=== PATIENT | male | born 1985 | race Caucasian/White ===

== ENCOUNTER 2022-08-27 17:15 | Emergency (ER) | payer OTHER, SELFPAY ==
[2022-08-27 17:47] VITALS: BP 141/87; PULSE 103; RESP 30; TEMP 38.5; O2SAT 97; BMI 32.5
--- NOTE | 2022-08-27 18:20 | CRLHL7_ITS ---
For Patients: As a result of the Cures Act, medical imaging exams and procedure reports are released immediately into your electronic medical record. You may view this report before your referring provider. If you have questions, please contact your health care provider. INDICATION: Fever, short of breath. TECHNIQUE: Chest 1 views. COMPARISON: None. FINDINGS: Lungs: Clear lungs. No consolidation. Linear left basilar opacity is likely scarring. Pleura: No pleural effusion or pneumothorax. Heart and Mediastinum: The cardiomediastinal silhouette is normal. The vessels are unremarkable. Bones: Unremarkable. IMPRESSION: No acute cardiopulmonary disease. Dictated by Lane Hargrove MD @ 08/27/2022 7:49:16 PM (Electronically Signed)
--- NOTE | 2022-08-27 18:22 | ED.GENADULT ---
HPI - General Adult General Chief complaint: Fever Stated complaint: Nauseous, body aches, chills Time Seen by Provider: 08/27/22 17:42 History of Present Illness HPI narrative: This patient arrives with fever, generalized malaise, and some shortness of breath. He is a 36-year-old male who is otherwise in good health. He does smoke every day. He states symptoms began at about midnight last evening. He has had a couple episodes of vomiting but no diarrhea. He has had just an occasional cough. Related Data Previous Rx's Medication Instructions Recorded amoxicillin 875 mg-potassium 1 tab PO BID 10 days #20 tabs 08/27/22 clavulanate 125 mg tablet ketorolac 10 mg tablet 10 mg PO Q8H 5 days #15 tabs 08/27/22 Allergies Allergy/AdvReac Type Severity Reaction Status Date / Time No Known Drug Allergies Allergy Verified 08/27/22 17:54 Review of Systems Status of ROS: Reports: 10 or more systems reviewed and unremarkable except as noted in History and below Narrative: Constitutional: Fever and generalized malaise. Eyes: No discharge. No vision changes. HENT: No congestion, no sore throat, no ear pain. Cardiovascular: No chest pain, no palpitations. Respiratory: Occasional cough with report of shortness of breath. Gastrointestinal: No abdominal pain, no diarrhea. He has had 2 episodes of vomiting. Genitourinary: No dysuria, no hematuria. Musculoskeletal: Normal range of motion. Skin: No rashes, no pruritis. Neurological: No dizziness, weakness, sensory change, speech change. Endo/Heme/Allergies: No bruising or bleeding. No polydipsia. Pysch: no suicidality, no anxiety, no insomnia. All other systems reviewed and are negative. PFSH PFS Social History Smoking Status: Current every day smoker What tobacco products do you use: cigarettes Smoking packs per day: 1 Smoking cigarettes per day: 20.0 Years smoked: 15 Smoking pack-years: 15.00 Do you use any of these nicotine containing products: None Second hand tobacco smoke exposure: No How often do you have a drink containing alcohol: 2-4 times a month How many standard drinks containing alcohol do you have on a typical day: 5 or 6 How often do you have six or more drinks on one occasion: Weekly AUDIT-C Alcohol total score: 7 Non-prescribed substance use: marijuana (any form) service: No Exam Narrative: Exam Narrative: Constitutional: Well-developed, well-nourished, no acute distress. HEENT: Normocephalic, atraumatic. Neck: Normal range of motion. Nontender. Supple. Heart: Regular. No murmurs. Borderline tachycardia. Intact distal pulses. Lungs: Clear to auscultation. No chest discomfort. No wheezes, rhonchi, or rales. Abdomen: Normal bowel sounds. Nontender. No rebound tenderness. Genitalia: Deferred. Back: No midline tenderness. Normal range of motion. Extremities: Normal range of motion. No injury. Skin: Intact. No rash. Warm. No erythema or pallor. Neurologic: No altered sensation. No weakness. Alert and oriented. Psychiatric: No suicidality. No anxiety or depression. No insomnia. Nursing notes and vitals signs are reviewed. Const: Vital Signs, click to edit/add: Vital Signs - 24 hr 08/27/22 17:47 Temperature 101.3 F H Pulse Rate [Pulse Oximeter] 103 H Respiratory Rate 30 H Blood Pressure [Ri ght Upper Arm] 141/87 H Pulse Oximetry 97 Oxygen Delivery Me thod Room Air Course Vital Signs Vital signs: Initial Vital Signs Temperature 101.3 F H 08/27/22 17:47 Temperature Source Temporal Artery Scan 08/27/22 17:47 Pulse Rate 103 H 08/27/22 17:47 Pulse Rhythm 08/27/22 17:47 Respiratory Rate 30 H 08/27/22 17:47 Blood Pressure 141/87 H 08/27/22 17:47 Blood Pressure Mean 105 08/27/22 17:47 Blood Pressure Position Supine 08/27/22 17:47 Pulse Oximetry 97 08/27/22 17:47 Oxygen Delivery Method 08/27/22 17:47 Vital Signs Temperature 101.3 F H 08/27/22 17:47 Pulse Rate 103 H 08/27/22 17:47 Respiratory Rate 30 H 08/27/22 17:47 Blood Pressure 141/87 H 08/27/22 17:47 Pulse Oximetry 97 08/27/22 17:47 Oxygen Delivery Method 08/27/22 17:47 Temperature 101.3 F H 08/27/22 17:47 Pulse Rate 103 H 08/27/22 17:47 Respiratory Rate 30 H 08/27/22 17:47 Blood Pressure 141/87 H 08/27/22 17:47 Pulse Oximetry 97 08/27/22 17:47 Oxygen Delivery Method 08/27/22 17:47 Medical Decision Making MDM Narrative Medical decision making narrative: This patient comes in with fever and report of some shortness of breath. He has generalized malaise. An IV was established where he received L of normal saline. Lab results returned with a mildly elevated white blood cell count. Chest x-ray shows no sign of acute pulmonary disease. The patient is a every day smoker. Lab results are negative for COVID and influenza. I did decide to prescribed Toradol and Augmentin. There is a fair chance that this is a viral infection but his risk with smoking and the presence of a fever and negative COVID and influenza tests bring me to this plan. I describe signs and symptoms that would indicate a need for return and re-evaluation. Lab Data Labs: Lab Results 08/27/22 08/27/22 08/27/22 Range/Units 17:53 18:40 18:40 WBC 14.03 H (4.50-11.00) K/uL RBC 4.72 (4.30-5.90) m/uL Hgb 14.5 (13.5-17.5) gm/dL Hct 42.3 (37.0-53.0) % MCV 90 (80-100) fL MCH 31 (26-34) pg MCHC 34 (32-36) gm/dL RDW Coeff of Joseph 12.7 (11.5-15.5) % Plt Count 206 (140-440) K/uL Neut % (Auto) 91.2 H (42.0-72.0) % Lymph % (Auto) 3.2 L (20-44) % Childress % (Auto) 5.0 (0.0-11.0) % Eos % (Auto) 0.0 (0.0-7.0) % Baso % (Auto) 0.2 (0.0-3.0) % Neut # (Auto) 12.80 H (1.7-7.0) K/uL Lymph # (Auto) 0.40 L (0.90-2.90) K/uL Childress # (Auto) 0.70 (0.00-0.90) K/UL Eos # (Auto) 0.00 (0.00-0.50) K/uL Baso # (Auto) 0.00 (0.00-0.30) K/uL Abs Immat Gran (auto) 0.05 (0.00-0.30) K/uL Sodium 131 L (135-149) mmol/L Potassium 3.8 (3.6-5.1) mmol/L Chloride 98 (96-114) mmol/L Carbon Dioxide 23 (20-32) mmol/L BUN 15 (5-24) mg/dL Creatinine 1.0 (0.5-1.5) mg/dL Estimated Creat Clear 112.09 Estimated GFR 100 ml/min Glucose 111 (60-115) mg/dL Calcium 9.2 (8.4-10.6) mg/dL SARS-CoV-2 (PCR) Negative SARS-CoV-2 (Negative) Influenza Type A (PCR) Negative PCR FLU A (Negative) Influenza Type B (PCR) Negative PCR FLU B (Negative) Imaging Data Chest x-ray: Radiologist's impression: No acute cardiopulmonary disease. Discharge Plan Discharge Clinical Impression: Acute lower respiratory infection Patient Disposition: Home, Self-Care Condition: Stable Additional Instructions: Take medication as prescribed. Follow up with MD or return if worsening symptoms occur. Prescriptions: New ketorolac 10 mg tablet 10 mg PO Q8H 5 Days Qty: 15 0RF amoxicillin-pot clavulanate 875-125 mg tablet 1 tab PO BID 10 Days Qty: 20 0RF Follow Up/Referrals: Harley Wheeler MD [Staff Physician] - Stand Alone Forms: [employer] Info Instructions
--- OUTSIDE RECORDS SUMMARY | 2022-08-27 18:37 | XMS_ITS | Encounter Summary ---
:1985 Author Organization [facility] Address [address] [place] [id number] Care Team Providers Name Role Phone Harley Wheeler MD Primary Care Provider Duy Torres MD Unavailable Reason for Referral Mental Health Outpatient (Routine) - Closed Specialty Diagnoses / Procedures Referred By Contact Refer red To Contact Diagnoses Depression, unspecified depression type Duy Torres MD [address] [place] [address] [id number] Referral ID Status Reason Start Date Expiration Date Visits Requ ested Visits Authorized [id number] Closed 01/20/2020 01/19/2021 1 1 S Reason for Visit Reason Comments Derm Problem Tang is here today for eczem a throughout the body. Consultation (Routine) - Closed Specialty Diagnoses / Procedures Referred By Contact Refer red To Contact Diagnoses Chronic pruritic rash in adult Generic External Data Department Referral ID Status Reason Start Date Expiration Date Visits Requ ested Visits Authorized [id number] Closed 11/03/2019 11/02/2020 1 1 Encounter Details Date Type Department Care Team Description 01/20/2020 Office Visit [facility] Dermatology Harley Wheeler MD [facility] [address] [place] [address] Multiple excoriations (Primary Dx); [address] [place] [address] Duy Torres MD [address] [place] [id number] Angular cheilitis; [address] Floor [place]et[place]; [place], [place] Depression, unspecified depression type [id number] Social History Tobacco Use Types Packs/Day Years Used Date Current Every Day Smoker Cigarettes 1 Smokeless Tobacco: Current User Alcohol Use Standard Drinks/Week Comments Not Asked 0 (1 standard drink = 0.6 oz pure alcoho l) Sex Assigned at Date Recorded Not on file documented as of this encounter Last Filed Vital Signs Vital Sign Reading Time Taken Comments Blood Pressure 137/86 01/20/2020 8:37 AM CRTTS Pulse 85 01/20/2020 8:37 AM CRTTS Temperature - - Respiratory Rate - - Oxygen Saturation - - Inhaled Oxygen Concentration - - Weight - - Height - - Body Mass Index - - documented in this encounter Patient Instructions Patient InstructionsPearsDuy dailey MD - 01/20/2020 9:00 AM CST S documented in this encounter Progress Notes Duy Torres MD - 01/20/2020 9:00 AM CST [facility] Dermatology Note Dermatology Problem List: 1. Pruritus and excoriations: in setting of major life stressors -triamcinolone 0.1% ointment, mupirocin 2% ointment 2. Angular cheilitis -nystatin ointment Encounter Date: Jan 20, 2020 CC: Chief Complaint Patient presents with ??? Derm Problem Tang is here today for eczema throughout the body. History of Present Illness: Mr. Tang Schmidt is a 34 year old male who presents for evaluation of a rash. The patient reports that in 04/2019, he began developing small dots like blackheads. He tried expressing the contents of the lesions, but they then began to spread throughout his body. He works in a shop and cuts wood frequen tly, and when he sustains small cuts on his hands, the cuts grow into an oval shape. He believes that there may be a foreign parasite or infection that attacks any open wounds on his skin. He works on a farm, and he is very concerned for a pinworm infection as there are a fair number of animals living there and this environment is not very sanitary. He reports that he has been continuing to develop small black lesions on his skin, and when he tries to pick them out of his skin with tweezers, he is able to pull a white foreign body out of the lesion. He has tried multiple treatments including Neosporin, hydrocortisone, Hibiclens, apple cider vinegar, and he was also treated with permethrin cream aswell as a couple of courses of antibiotics. He reports that the only treatment that seemed to provide any relief was the apple cider vinegar. He also notes that has been noticing changes in his stool, and he is sometims able to see what look like worms in his stool. Notably, he has also been under a fair amount of stress in his life as this has been on-going. Past Medical History: Patient Active Problem List Diagnosis ??? Multiple excoriations Past Medical History: Diagnosis Date ??? Viral meningitis No Comments Provided Past Surgical History: Procedure Laterality Date ??? OTHER SURGICAL HISTORY [id number],NO PREVIOUS SURGERY Social History: Patient reports that he has been smoking cigarettes. He has been smoking about 1.00 pack per day. Heuses smokeless tobacco. Family History: History reviewed. No pertinent family history. Medications: Current Outpatient Medications Medication Sig Dispense Refill ??? chlorhexidine (HIBICLENS) 4 % liquid Apply topically daily as needed for wound care 473 mL 5 ??? mupirocin (BACTROBAN) 2 % external ointment Apply topically 2 times daily 60 g 3 ??? nystatin (MYCOSTATIN) 477614 UNIT/GM external ointment Apply topically 2 times daily For corner of mouth 30 g 3 ??? sertraline (ZOLOFT) 100 MG tablet TK 1 T PO QD ??? triamcinolone (KENALOG) 0.1 % external ointment Apply topically 2 times daily 454 g 3 No Known Allergies Review of Systems: -Constitutional: Otherwise feeling well today, in usual state of health. -HEENT: Patient denies nonhealing oral sores. -Skin: As above in HPI. No additional skin concerns. Physical exam: Vitals: BP 137/86 (BP Location: Right arm, Patient Position: Sitting, Cuff Size: Adult Regular) Pulse 85 GEN: This is a well developed, well-nourished male in no acute distress, in a pleasant mood. SKIN: Full skin, which includes the head/face, both arms, chest, back, abdomen,both legs, genitalia and/or groin buttocks, digits and/or nails, was examined. -Chopra skin type: II -numerous superficial linear and scooped out erosion, some with scant overlying crusting scattered on the forearms, upper arms, lower legs, upper chest, upper back, and neck -erythematous fissure papule on the R oral commissure with scant crusting -No other lesions of concern on areas examined. Impression/Plan: 1. Diffuse pruritus with excoriations related to trauma from excessive scratching - discussed that many of the changes on his skin are secondary changes related to scratching. We also discussed the risks, benefits, and efficacy of treatment with topical mupirocin and triamcinolone in conjunction with Duoderm dressings. The patient is agreeable to this plan. -Start: triamcinolone 0.1% ointment, mupirocin 2% ointment -continue chlorhexidine wash -Labs: CBC w/diff, CMP -we also discussed that stress can be a major contributing factor that can trigger diffuse pruritus and emphasized the need to reduce stress in his life as best he can. -referral placed for mental health evaluation to discuss and manage the impact stress has been having on his life 2. Angular cheilitis - We discussed the natural etiology of the condition as well as the risks, benefits, and efficacy oftreatment with topical nystatin - start: nystatin 304606 unit/gm ointment Follow-up in 4-6 weeks, earlier for new or changing lesions. Staff Involved: Scribe/Staff Scribe Disclosure I, Murphy Carmen, am serving as a scribe to document services personally performed by Dr. Duy Torres MD, based on data collection and the provider's statements to me. Provider Disclosure: The documentation recorded by the scribe accurately reflects the services I personally performed andthe decisions made by me. Duy Torres MD Male Impersonator of Dermatology Department of Dermatology [facility] [employer] [facility] S documented in this encounter Nursing Notes Arin Baca CMA - 01/20/2020 9:00 AM CST Dermatology Rooming Note Tang Schmidt's goals for this visit include: Chief Complaint Patient presents with ??? Derm Problem Tang is here today for eczema throughout the body. Arin Baca CMA S documented in this encounter Plan of Treatment Scheduled Referrals Name Type Priority Associated Diagnoses Order S [facility] REFERRAL - Referral Routine Depression, unsp ecified Ordered: 01/20/2020 Adult; Assessments and depression type Testing; General Psychological Testing; [facility]: [facility] ; We will contact you to schedule the appointment or please call with any questions documented as of this encounter Results Iron and iron binding capacity (01/20/2020 9:29 AM CRTTS) athologist Signature Iron 72 35 - 180 01/20/2020 [facility] ug/dL 10:03 AM [facility] Iron Binding 344 240 - 430 01/20/2020 [facility] Cap ug/dL 10:03 AM [facility] Iron Saturation 21 15 - 46 % 01/20/2020 [facility] Index 10:03 AM [facility] Specimen Anatomical Collection Method Collection Time Receive d Time (Source) Location / / Volume Laterality Blood specimen 01/20/2020 9:29 AM 020 9:30 (specimen) CRTTS AM CRTTS Duy Torres MD LAB - BLOOD ORDERABLES Performing Organization Address City/State/ZIP Code Phon e Number [address] [address] [facility] TSH with free T4 reflex (01/20/2020 9:29 AM CRTTS) athologist Signature TSH 2.10 0.40 - 4.00 01/20/2020 [place] mU/L 10:07 AM [facility] Specimen Anatomical Collection Method Collection Time Receive d Time (Source) Location / / Volume Laterality Blood specimen 01/20/2020 9:29 AM 020 9:30 (specimen) CRTTS AM CRTTS Duy Torres MD LAB - BLOOD ORDERABLES Performing Organization Address City/State/ZIP Code Phon e Number M [facility] [address] [address] [phone] [facility] [address] [address], [place] [phone] (ABNORMAL) Comprehensive metabolic panel (01/20/2020 9:29 AM CRTTS) Analysis Performed At Patho logist Time Signature Sodium 139 133 - 144 01/20/2020 [facility] mmol/L 10:06 AM [facility] Potassium 4.1 3.4 - 5.3 01/20/2020 [facility] mmol/L 10:06 AM [facility] Chloride 107 94 - 109 01/20/2020 [facility] mmol/L 10:06 AM [facility] Carbon Dioxide 29 20 - 32 01/20/2020 [facility] mmol/L 10:06 AM [facility] Anion Gap 3 3 - 14 01/20/2020 [facility] mmol/L 10:06 AM [facility] Glucose 102 (H) 70 - 99 01/20/2020 [facility] mg/dL 10:06 AM [facility] Urea Nitrogen 8 7 - 30 01/20/2020 [facility] mg/dL 10:06 AM [facility] Creatinine 0.88 0.66 - 01/20/2020 [facility] 1.25 mg/dL 10:06 AM [facility] GFR Estimate >90 >60 01/20/2020 [facility] mL/min/{1. 10:06 AM [facility] 73_m2} [facility] Comment: Non GFR Calc Starting 11/11/2018, serum creatinine ba sed estimated GFR (eGFR) will be calculated using the Chronic Kidney Dise ase Epidemiology Collaboration (CKD-EPI) equation. GFR Estimate If >90 >60 mL/min/{1.73_m2} 01/20/2020 10 :06 AM [facility] Comment: GFR Calc Starting 11/11/2018, serum creatinine ba sed estimated GFR (eGFR) will be calculated using the Chronic Kidney Dise ase Epidemiology Collaboration (CKD-EPI) equation. Calcium 8.9 8.5 - 10.1 mg/dL 01/20/2020 10:06 AM [facility] Bilirubin Total 0.3 0.2 - 1.3 mg/dL 01/20/2020 10:07 A M [facility] Albumin 3.8 3.4 - 5.0 g/dL 01/20/2020 10:07 AM [facility] Protein Total 6.8 6.8 - 8.8 g/dL 01/20/2020 10:07 AM [facility] Alkaline Phosphatase 70 40 - 150 U/L 01/20/2020 10:07 AM [facility] ALT 45 0 - 70 U/L 01/20/2020 10:07 AM [facility] AST 34 0 - 45 U/L 01/20/2020 10:07 AM [facility] Specimen Anatomical Collection Method Collection Time Receive d Time (Source) Location / / Volume Laterality Blood specimen 01/20/2020 9:29 AM 020 9:30 (specimen) CRTTS AM [facility] Duy Torres MD LAB - BLOOD ORDERABLES Performing Organization Address City/[facility]/ZIP Code Phon e Number [address] [id number] [phone] [phone] [place] [phone] [facility] CBC with platelets differential (01/20/2020 9:29 AM [facility]) [facility] gist Method Time Signature WBC 5.3 4.0 - 01/20/2020 [facility] 11.0 9:34 AM [facility] 10e9/L [facility] RBC Count 4.63 4.4 - 5.9 01/20/2020 [facility] 10e12/L 9:34 AM [facility] Hemoglobin 14.6 13.3 - 01/20/2020 [facility] 17.7 g/dL 9:34 AM [facility] Hematocrit 44.7 40.0 - 01/20/2020 [facility] 53.0 % 9:34 AM [facility] MCV 97 78 - 100 01/20/2020 [facility] fl 9:34 AM [facility] MCH 31.5 26.5 - 01/20/2020 [facility] 33.0 pg 9:34 AM [facility] MCHC 32.7 31.5 - 01/20/2020 [facility] 36.5 g/dL 9:34 AM [facility] RDW 12.8 10.0 - 01/20/2020 [facility] 15.0 % 9:34 AM [facility] Platelet Count 261 150 - 450 01/20/2020 [facility] 10e9/L 9:34 AM [facility] Diff Method Automated 01/20/2020 [facility] Method 9:34 AM [facility] % Neutrophils 55.7 % 01/20/2020 [facility] 9:34 AM [facility] % Lymphocytes 26.2 % 01/20/2020 [facility] 9:34 AM [facility] % Monocytes 11.8 % 01/20/2020 [facility] 9:34 AM [facility] % Eosinophils 4.8 % 01/20/2020 [facility] 9:34 AM [facility] % Basophils 1.1 % 01/20/2020 [facility] 9:34 AM [facility] % Immature 0.4 % 01/20/2020 [facility] Granulocytes 9:34 AM [facility] Nucleated RBCs 0 0 /100 01/20/2020 [facility] 9:34 AM [facility] Absolute 2.9 1.6 - 8.3 01/20/2020 [facility] Neutrophil 10e9/L 9:34 AM [facility] Absolute 1.4 0.8 - 5.3 01/20/2020 [facility] Lymphocytes 10e9/L 9:34 AM [facility] Absolute 0.6 0.0 - 1.3 01/20/2020 [facility] Monocytes 10e9/L 9:34 AM [facility] Absolute 0.3 0.0 - 0.7 01/20/2020 [facility] Eosinophils 10e9/L 9:34 AM [facility] Absolute 0.1 0.0 - 0.2 01/20/2020 [facility] Basophils 10e9/L 9:34 AM CRTTS [facility] Abs Immature 0.0 0 - 0.4 01/20/2020 [facility] Granulocytes 10e9/L 9:34 AM [facility] Absolute 0.0 01/20/2020 [facility] Nucleated RBC 9:34 AM [facility] Specimen Anatomical Collection Method Collection Time Receive d Time (Source) Location / / Volume Laterality Blood specimen 01/20/2020 9:29 AM 020 9:30 (specimen) CRTTS AM CRTTS Duy Torres MD LAB - BLOOD ORDERABLES Performing Organization Address City/State/ZIP Code Phon e Number [address] [address] [facility] documented in this encounter Visit Diagnoses Diagnosis Multiple excoriations - Primary Other and unspecified superficial injury of other, multiple, and unspecified sites, without mention of infection Angular cheilitis Diseases of lips Impetigo Depression, unspecified depression type documented in this encounter Additional Health Concerns Assessment Noted Time PHQ-9 Depression Total Score: 16 01/20/2020 8:36 AM CS T documented as of this encounter Care Teams Neck Pinner Relationship Specialty Start Date End Date Harley Wheeler MD PCP - General 11/03/19 [facility] [address] [place] [address] Duy Torres MD MD Dermatology 11/03/[address] [place] [phone] documented as of this encounter
--- OUTSIDE RECORDS SUMMARY | 2022-08-27 18:37 | XMS_ITS | Encounter Summary ---
:1985 Author Organization [place] Address [address] [place] [address] Care Team Providers Name Role Phone Harley Wheeler MD Primary Care Provider Duy Torres MD Unavailable Reason for Visit Reason Onset Date Comments Appointment 02/24/2020 Encounter Details Date Type Department Care Team Description 02/24/2020 Telephone [facility] Dermatology Duy Torres MD Appointment [address] [address] [phone] Social History Tobacco Use Types Packs/Day Years Used Date Current Every Day Smoker Cigarettes 1 Smokeless Tobacco: Current User Alcohol Use Standard Drinks/Week Comments Not Asked 0 (1 standard drink = 0.6 oz pure alcoho l) Sex Assigned at Date Recorded Not on file COVID-19 Exposure Response Date Recorded In the last month, have you been in contact Unable to assess 02/24/2020 7:03 AM CDT with someone who was confirmed or suspected to have Coronavirus / COVID-19? documented as of this encounter Miscellaneous Notes Telephone Encounter - Yara Montero LPN - 02/24/2020 9:28 AM CDT Attempted to call patient for his appointment today at 9:30am. No answer, unable to leave voicemail due to mailbox being full. Yara Montero LPN documented in this encounter Plan of Treatment Not on filedocumented as of this encounter Visit Diagnoses Not on filedocumented in this encounter Additional Health Concerns Assessment Noted Time PHQ-9 Depression Total Score: 16 01/20/2020 8:36 AM CS T documented as of this encounter Care Teams Engagement Director Relationship Specialty Start Date End Date Harley Wheeler MD PCP - General 11/03/19 [facility] [address] [place] [address] Duy Torres MD MD Dermatology 11/03/[address] [place] [address] documented as of this encounter
--- OUTSIDE RECORDS SUMMARY | 2022-08-27 18:37 | XMS_ITS | Encounter Summary ---
:1985 Author Organization [place] Address [address] [place] [address] Care Team Providers Name Role Phone Harley Wheeler MD Primary Care Provider Duy Torres MD Unavailable Encounter Details Date Type Department Care Team Description 01/20/2020 Travel Social History Tobacco Use Types Packs/Day Years Used Date Current Every Day Smoker Cigarettes 1 Smokeless Tobacco: Current User Alcohol Use Standard Drinks/Week Comments Not Asked 0 (1 standard drink = 0.6 oz pure alcoho l) Sex Assigned at Date Recorded Not on file documented as of this encounter Plan of Treatment Not on filedocumented as of this encounter Visit Diagnoses Not on filedocumented in this encounter Additional Health Concerns Assessment Noted Time PHQ-9 Depression Total Score: 16 01/20/2020 8:36 AM CS T documented as of this encounter Care Teams Cellular Tower Climber Relationship Specialty Start Date End Date Harley Wheeler MD PCP - General 11/03/19 [facility] [address] [place] [address] Duy Torres MD MD Dermatology 11/03/[address] [place] [address] [id number] documented as of this encounter
--- OUTSIDE RECORDS SUMMARY | 2022-08-27 18:37 | XMS_ITS | Encounter Summary ---
:1985 Author Organization [place] Address [address] [place] [address] Care Team Providers Name Role Phone Harley Wheeler MD Primary Care Provider Duy Torres MD Unavailable Reason for Visit Reason Onset Date Comments Appointment 01/21/2020 Encounter Details Date Type Department Care Team Description 01/21/2020 Telephone [facility] Dermatology Duy Torres MD Appointment [address] [place] [address] [phone] Social History Tobacco Use Types Packs/Day Years [...] this encounter Miscellaneous Notes Telephone Encounter - Nghia Small - 01/21/2020 2:23 PM CST We did not reach Tang Shcmidt, we left a message with our contact number [phone]. If we do not hear from them within the next 3 business days we will mail a letter offering our scheduling services. If they do call to schedule, in the future, we will inform you of the outcome. Thank you for your referral, [facility] RDOUS WASTE TECHNICIAN documented in this encounter Plan of Treatment Not on filedocumented as of this encounter Visit Diagnoses Not on filedocumented in this encounter Additional Health Concerns Assessment Noted Time PHQ-9 Depression Total Score: 16 01/20/2020 8:36 AM CS T documented as of this encounter Care Teams Circuit [address] Magistrate Relationship Specialty Start Date End Date Harley Wheeler MD PCP - General 11/03/19 [facility] [address] [place] [address] Duy Torres MD MD Dermatology 11/03/19 [address] [place] [address] documented as of this encounter
--- OUTSIDE RECORDS SUMMARY | 2022-08-27 18:37 | XMS_ITS | Encounter Summary ---
:1985 Author Organization [place] Address [address] [place] [address] Care Team Providers Name Role Phone Harley Wheeler MD Primary Care Provider Duy Torres MD Unavailable Encounter Details Date Type Department Care Team Description 01/20/2020 Orders Only [facility] Multiple excoriations [address] [place] [address] [phone] Social History Tobacco Use Types Packs/Day Years Used Date Current Every Day Smoker Cigarettes 1 Smokeless Tobacco: Current User Alcohol Use Standard Drinks/Week Comments Not Asked 0 (1 standard drink = 0.6 oz pure alcoho l) Sex Assigned at Date Recorded Not on file documented as of this encounter Plan of Treatment Not on filedocumented as of this encounter Procedures Procedure Name Priority Date/Time Associated Diagnosis Comme nts CBC WITH PLATELETS & Routine 01/20/2020 9:29 Multiple Resu lts for this DIFFERENTIAL AM SENIOR PROJECT ACCOUNTANT excoriations procedure are i n the results section. TSH WITH FREE T4 Routine 01/20/2020 9:29 Multiple Results for this REFLEX AM SENIOR PROJECT ACCOUNTANT excoriations procedure are i n the results section. IRON AND IRON BINDING Routine 01/20/2020 9:29 Multiple Res ults for this CAPACITY AM SENIOR PROJECT ACCOUNTANT excoriations procedure are i n the results section. COMPREHENSIVE Routine 01/20/2020 9:29 Multiple Results for this METABOLIC PANEL AM SENIOR PROJECT ACCOUNTANT excoriations procedure ar e in the results section. documented in this encounter Results Iron and iron binding capacity (01/20/2020 9:29 AM SENIOR PROJECT ACCOUNTANT) athologist Signature Iron 72 35 - 180 01/20/2020 [facility] ug/dL 10:03 AM [facility] Iron Binding 344 240 - 430 01/20/2020 [facility] Cap ug/dL 10:03 AM [facility] Iron Saturation 21 15 - 46 % 01/20/2020 [facility] Index 10:03 AM [facility] Specimen Anatomical Collection Method Collection Time Receive d Time (Source) Location / / Volume Laterality Blood specimen 01/20/2020 9:29 AM 9:30 (specimen) SENIOR PROJECT ACCOUNTANT AM SENIOR PROJECT ACCOUNTANT Duy Torres MD LAB - BLOOD ORDERABLES Performing Organization Address City/State/[place] [address] [facility] TSH with free T4 reflex (01/20/2020 9:29 AM SENIOR PROJECT ACCOUNTANT) athologist Signature TSH 2.10 0.40 - 4.00 01/20/2020 [place] mU/L 10:07 AM [facility] Specimen Anatomical Collection Method Collection Time Receive d Time (Source) Location / / Volume Laterality Blood specimen 01/20/2020 9:29 AM 9:30 (specimen) SENIOR PROJECT ACCOUNTANT AM SENIOR PROJECT ACCOUNTANT Duy Torres MD LAB - BLOOD ORDERABLES Performing Organization Address City/State/ZIP Code Phon e Number [facility] [address] [address] [phone] [place] [id number] [address] [address], [facility] [phone] CBC with platelets differential (01/20/2020 9:29 AM SENIOR PROJECT ACCOUNTANT) [facility] gist Method Time Signature WBC 5.3 4.0 - 01/20/2020 [facility] 11.0 9:34 AM [facility] 10e9/L [facility] RBC Count 4.63 4.4 - 5.9 01/20/2020 [facility] 10e12/L 9:34 AM [facility] Hemoglobin 14.6 13.3 - 01/20/2020 [facility] 17.7 g/dL 9:34 AM [facility] Hematocrit 44.7 40.0 - 01/20/2020 [facility] 53.0 % 9:34 AM [facility] MCV 97 78 - 100 01/20/2020 [facility] fl 9:34 AM [facility] MCH 31.5 26.5 - 01/20/2020 [facility] 33.0 pg 9:34 AM [facility] MCHC 32.7 31.5 - 01/20/2020 [facility] 36.5 g/dL 9:34 AM [facility] RDW 12.8 10.0 - 01/20/2020 [facility] 15.0 % 9:34 AM [facility] Platelet Count 261 150 - 450 01/20/2020 [facility] 10e9/L 9:34 AM [facility] Diff Method Automated 01/20/2020 [facility] Method 9:34 AM [facility] % Neutrophils 55.7 % 01/20/2020 [facility] 9:34 AM [facility] % Lymphocytes 26.2 % 01/20/2020 [facility] 9:34 AM [facility] % Monocytes 11.8 % 01/20/2020 [facility] 9:34 AM [facility] % Eosinophils 4.8 % 01/20/2020 [facility] 9:34 AM [facility] % Basophils 1.1 % 01/20/2020 [facility] 9:34 AM [facility] % Immature 0.4 % 01/20/2020 [facility] Granulocytes 9:34 AM [facility] Nucleated RBCs 0 0 /100 01/20/2020 [facility] 9:34 AM [facility] Absolute 2.9 1.6 - 8.3 01/20/2020 [facility] Neutrophil 10e9/L 9:34 AM [facility] Absolute 1.4 0.8 - 5.3 01/20/2020 [facility] Lymphocytes 10e9/L 9:34 AM [facility] Absolute 0.6 0.0 - 1.3 01/20/2020 [facility] Monocytes 10e9/L 9:34 AM [facility] Absolute 0.3 0.0 - 0.7 01/20/2020 [facility] Eosinophils 10e9/L 9:34 AM [facility] Absolute 0.1 0.0 - 0.2 01/20/2020 [facility] Basophils 10e9/L 9:34 AM [facility] Abs Immature 0.0 0 - 0.4 01/20/2020 [facility] Granulocytes 10e9/L 9:34 AM [facility] Absolute 0.0 01/20/2020 [facility] Nucleated RBC 9:34 AM [facility] Specimen Anatomical Collection Method Collection Time Receive d Time (Source) Location / / Volume Laterality Blood specimen 01/20/2020 9:29 AM 020 9:30 (specimen) SENIOR PROJECT ACCOUNTANT AM [facility] Duy Torres MD LAB - BLOOD ORDERABLES Performing Organization Address City/State/ZIP Code Phon e Number [facility] [address] [place] [address] [facility] (ABNORMAL) Comprehensive metabolic panel (01/20/2020 9:29 AM SENIOR PROJECT ACCOUNTANT) Analysis Performed At Patho logist Time Signature Sodium 139 133 - 144 01/20/2020 [facility] mmol/L 10:06 AM [facility] Potassium 4.1 3.4 - 5.3 01/20/2020 [facility] mmol/L 10:06 AM [facility] Chloride 107 94 - 109 01/20/2020 [facility] mmol/L 10:06 AM [facility] Carbon Dioxide 29 20 - 32 01/20/2020 [facility] mmol/L 10:06 AM [facility] Anion Gap 3 3 - 14 01/20/2020 [facility] mmol/L 10:06 AM [facility] Glucose 102 (H) 70 - 99 01/20/2020 [facility] mg/dL 10:06 AM [facility] Urea Nitrogen 8 7 - 30 01/20/2020 [facility] mg/dL 10:06 AM [facility] Creatinine 0.88 0.66 - 01/20/2020 [facility] 1.25 mg/dL 10:06 AM [facility] GFR Estimate >90 >60 01/20/2020 [facility] mL/min/{1. 10:06 AM [facility] 73_m2} [facility] Comment: Non GFR Calc Starting 11/11/2018, serum creatinine ba sed estimated GFR (eGFR) will be calculated using the Chronic Kidney Dise [facility] Epidemiology Collaboration (CKD-EPI) equation. GFR Estimate If >90 >60 mL/min/{1.73_m2} 01/20/2020 10 :06 AM [facility] Comment: GFR Calc Starting 11/11/2018, serum creatinine ba sed estimated GFR (eGFR) will be calculated using the Chronic Kidney Dise [facility] Epidemiology Collaboration (CKD-EPI) equation. Calcium 8.9 8.5 - 10.1 mg/dL 01/20/2020 10:06 AM [facility] Bilirubin Total 0.3 0.2 - 1.3 mg/dL 01/20/2020 10:[address] [facility] Albumin 3.8 3.4 - 5.0 g/dL 01/20/2020 10:07 AM [facility] Protein Total 6.8 6.8 - 8.8 g/dL 01/20/2020 10:[address] [facility] Alkaline Phosphatase 70 40 - 150 U/L 01/20/2020 10:[address] [facility] ALT 45 0 - 70 U/L 01/20/2020 10:[address] [facility] AST 34 0 - 45 U/L 01/20/2020 10:[address] [facility] Specimen Anatomical Collection Method Collection Time Receive d Time (Source) Location / / Volume Laterality Blood specimen 01/20/2020 9:29 AM 020 9:30 (specimen) SENIOR PROJECT ACCOUNTANT AM SENIOR PROJECT ACCOUNTANT Duy Torres MD LAB - BLOOD ORDERABLES Performing Organization Address City/State/ZIP Code Phon e Number [facility] [address] [address], [facility] [phone] [facility] [address] [address], [facility] documented in this encounter Visit Diagnoses Diagnosis Multiple excoriations Other and unspecified superficial injury of other, multiple, and unspecified sites, without mention of infection documented in this encounter Additional Health Concerns Assessment Noted Time PHQ-9 Depression Total Score: 16 01/20/2020 8:36 AM CS T documented as of this encounter Care Teams Eyelet Row Marker Relationship Specialty Start Date End Date Harley Wheeler MD PCP - General 11/03/19 [facility] [address] [place] [address] Duy Torres MD MD Dermatology 11/03/19 [address] [place] [address] documented as of this encounter
--- OUTSIDE RECORDS SUMMARY | 2022-08-27 18:37 | XMS_ITS | Encounter Summary ---
:1985 Author Organization [place] Address [address] [place] [address] Care Team Providers Name Role Phone Harley Wheeler MD Primary Care Provider Duy Torres MD Unavailable Reason for Visit Reason Onset Date Comments Appointment 02/15/2020 Encounter Details Date Type Department Care Team Description 02/15/2020 Telephone [facility] Dermatology Duy Torres MD Appointment [id number] [place] [address] [phone] Social History Tobacco Use Types Packs/Day Years Used Date Current Every Day Smoker Cigarettes 1 Smokeless Tobacco: Current User Alcohol Use Standard Drinks/Week Comments Not Asked 0 (1 standard drink = 0.6 oz pure alcoho l) Sex Assigned at Date Recorded Not on file documented as of this encounter Miscellaneous Notes Telephone Encounter - Arin Baca CMA - 02/22/2020 2:21 PM CDT Voicemail left with patient asking to return a call to the clinic. Patient needs to sign up for MyChart and send photos before his appointment. Telephone Encounter - Arin Baca CMA - 02/15/2020 4:20 PM CDT Left a voicemail for Tang asking to call back to discuss his Dermatology appointment. Due to the COVID-19 virus we are minimizing any non-urgent or non life threatening appointments. Current appointment changed into a telephone visit. Clinic number provided to call back to discuss if needed. documented in this encounter Plan of Treatment Not on filedocumented as of this encounter Visit Diagnoses Not on filedocumented in this encounter Additional Health Concerns Assessment Noted Time PHQ-9 Depression Total Score: 16 01/20/2020 8:36 AM CS T documented as of this encounter Care Teams Military Personnel Specialist Relationship Specialty Start Date End Date Harley Wheeler MD PCP - General 11/03/19 [facility] [address] [place] [address] Duy Torres MD MD Dermatology 11/03/[address] [place] [address] documented as of this encounter
--- OUTSIDE RECORDS SUMMARY | 2022-08-27 18:37 | XMS_ITS | Clinical Summary ---
:1985 Author Organization [place] Address [address] [place] [address] Care Team Providers Name Role Phone Harley Wheeler MD Primary Care Provider Duy Torres MD Unavailable Allergies No known active allergies Medications Medication Sig Dispensed Refills Start Date End Date Status sertraline (ZOLOFT) TK 1 T PO QD 0 11/01/2019 Active 100 MG tablet triamcinolone Apply topically 2 454 g 3 01/20/2020 Active (KENALOG) 0.1 % times daily external ointmentIndications: Multiple excoriations mupirocin (BACTROBAN) Apply topically 2 60 g 3 01/20/2020 Active 2 % external times daily ointmentIndications: Impetigo nystatin (MYCOSTATIN) Apply topically 2 30 g 3 01/20/2020 Active 114404 UNIT/GM times daily For external corner of mouth ointmentIndications: Angular cheilitis chlorhexidine Apply topically 473 mL 5 01/20/2020 Active (HIBICLENS) 4 % daily as needed liquidIndications: for wound care Impetigo Active Problems Problem Noted Date Multiple excoriations 01/21/2020 Social History Tobacco Use Types Packs/Day Years Used Date Current Every Day Smoker Cigarettes 1 Smokeless Tobacco: Current User Alcohol Use Standard Drinks/Week Comments Not Asked 0 (1 standard drink = 0.6 oz pure alcoho l) Sex Assigned at Date Recorded Not on file Last Filed Vital Signs Vital Sign Reading Time Taken Comments Blood Pressure 137/86 01/20/2020 8:37 AM MANAGER OF SUSTAINABILITY Pulse 85 01/20/2020 8:37 AM MANAGER OF SUSTAINABILITY Temperature - - Respiratory Rate - - Oxygen Saturation - - Inhaled Oxygen Concentration - - Weight - - Height - - Body Mass Index - - Plan of Treatment Health Maintenance Due Date Last Done Comments ADVANCE CARE PLANNING 1985 ANNUAL REVIEW OF HM ORDERS 1985 PREVENTIVE CARE VISIT 1985 COVID-19 Vaccine (#1) 03/15/1986 Pneumococcal Vaccine: 1991 Pediatrics (0 to 5 Years) and At-Risk Patients (6 to 64 Years) (1 - PCV) HIV SCREENING 2000 HEPATITIS C SCREENING 2003 DTAP/TDAP/TD IMMUNIZATION (1 2010 - Tdap) PHQ-9 07/20/2020 01/20/2020 LIPID 2020 INFLUENZA VACCINE (#1) 2022 02/02/2020, 11/29/2016, 11/21/2016 HEPATITIS B IMMUNIZATION Aged Out No long er eligible based on patient's age to complete this to pic IPV IMMUNIZATION Aged Out No longer eligi ble based on patient's age to complete this to pic MENINGITIS IMMUNIZATION Aged Out No longe r eligible based on patient's age to complete this to pic Care Teams Hair Stylist Relationship Specialty Start Date End Date Harley Wheeler MD PCP - General 11/03/19 [facility] [address] [place] [address] Duy Torres MD MD Dermatology 11/03/[address] [place] [address]
--- OUTSIDE RECORDS SUMMARY | 2022-08-27 18:37 | XMS_ITS | Encounter Summary ---
:1985 Author Organization [place] Address [address] [place] [address] Care Team Providers Name Role Phone Harley Wheeler MD Primary Care Provider Duy Torres MD Unavailable Encounter Details Date Type Department Care Team Description 02/24/2020 Travel Social History Tobacco Use Types Packs/Day [...] / COVID-19? documented as of this encounter Plan of Treatment Not on filedocumented as of this encounter Visit Diagnoses Not on filedocumented in this encounter Additional Health Concerns Assessment Noted Time PHQ-9 Depression Total Score: 16 01/20/2020 8:36 AM CS T documented as of this encounter Care Teams Food Consultant Relationship Specialty Start Date End Date Harley Wheeler MD PCP - General 11/03/19 [facility] [address] [place] [address] Duy Torres MD MD Dermatology 11/03/19 [address] [place], [place] 3[address] documented as of this encounter
[2022-08-27 18:38] LABS: PCR FLU A Negative PCR FLU A (Negative); PCR FLU B Negative PCR FLU B (Negative)
--- OUTSIDE RECORDS SUMMARY | 2022-08-27 18:38 | XMS_ITS | Encounter Summary ---
:1985 Author Organization [place] Address [address] [place] [address] Care Team Providers Name Role Phone Unavailable Primary Care Provider Unavailable Encounter Details Date Type Department Care Team Description 08/14/2009 [facility] [address] [place] [address] Social History Tobacco Use Types Packs/Day Years Used Date Never Assessed Sex Assigned at Date Recorded Not on file documented as of this encounter ED Notes Jude Nicholas MD - 08/14/2009 8:46 AM CDT Patient Information Patient Name Tang Schmidt Sex Male ED Notes signed by Jude Nicholas MD at 08/15/2009 9:02 PM Author: Jude Nicholas MD Service: (none) Author Type: Physician Filed: 06/22/2012 4:27 PM Encounter Date: 06/06/2012 2:32 PM Status: Signed Breeding Technician: Jude Nicholas MD (Physician) PROBLEM: Fish hook, right thumb. SUBJECTIVE: Above in his volar thumb. They snipped it off. There is only a couple of millimeters showing. His last tetanus shot was less than five years ago. The area was soaked, cleaned and infiltrated with 0.5 mL of lidocaine and it was removed easily with the fish hook extractor. PAST MEDICAL HISTORY: He is in good health. MEDICATIONS: None. ALLERGIES: None. OBJECTIVE: Blood pressure 150/84. Temperature 97.3. Pulse 96. Respirations 16. O2 stats 99%. PLAN: Recommend hot soaks 3-4 times daily and dressing changes of band-aid and antibiotic ointment. Recheck if increased redness, swelling, pain, drainage or not healed up over the next week. Jude Nicholas M.D. AYAN/zack TIME: 2143 TIME: 0845 Primary Provider: Not Listed documented in this encounter Plan of Treatment Not on filedocumented as of this encounter Visit Diagnoses Not on filedocumented in this encounter
--- OUTSIDE RECORDS SUMMARY | 2022-08-27 18:38 | XMS_ITS | Encounter Summary ---
:1985 Author Organization [place] Address [address] [place] [address] Care Team Providers Name Role Phone Unavailable Primary Care Provider Unavailable Encounter Details Date Type Department Care Team Description 06/07/2007 Results Only [facility] Sam Iyer MD Hospital Results [address] [place] [phone] Social History Tobacco Use Types Packs/Day Years Used Date Never Assessed Sex Assigned at Date Recorded Not on file documented as of this encounter Plan of Treatment Not on filedocumented as of this encounter Procedures Procedure Name Priority Date/Time Associated Diagnosis Comme nts HC CT HEAD WO Routine 06/07/2007 2:28 PM Results for this CONTRAST CDT procedure are i n the results section. documented in this encounter Results CT SCAN HEAD/BRAIN (06/07/2007 2:28 PM CDT) Specimen (Source) Anatomical Collection Method Collection Time Re ceived Time Location / / Volume Laterality 06/07/2007 2:28 PM CDT Impressions RADIOLOGY RESULTS - 06/07/2007 2:[address] HEAD, UNENHANCED REASON FOR EXAM: Headache. FINDINGS: Negative. No hemorrhage or mas s-effect. Sam Iyer MD [employer] IMAGING STUDIES Performing Organization Address City/State/ZIP Code Phon e Number RADIOLOGY RESULTS documented in this encounter Visit Diagnoses Not on filedocumented in this encounter
--- OUTSIDE RECORDS SUMMARY | 2022-08-27 18:38 | XMS_ITS | Encounter Summary ---
:1985 Author Organization [place] Address [address] [place] [address] Care Team Providers Name Role Phone Unavailable Primary Care Provider Unavailable Encounter Details Date Type Department Care Team Description 01/27/2005 Historic Results INTERFACED REPORT Jean Leija PA-C [facility] [address] [facility] [address] [place], [place] [phone] (Wo rk) Social History Tobacco Use Types Packs/Day Years Used Date Never Assessed Sex Assigned at Date Recorded Not on file documented as of this encounter Plan of Treatment Not on filedocumented as of this encounter Procedures Procedure Name Priority Date/Time Associated Diagnosis Comme nts INFLUENZA A/B Routine 01/27/2005 10:30 AM Results for this ANTIGEN [facility] procedure are i n the results section. documented in this encounter Results (ABNORMAL) Influenza A/B antigen (01/27/2005 10:30 AM BARGE HAND) [facility] Method Time Signature Influenza A/B Nasopharyngeal MISYS Agn Specimen Influenza A Positive (A) NEG MISYS Influenza B Negative NEG MISYS Specimen Anatomical Collection Method Collection Time Receive d Time (Source) Location / / Volume Laterality 01/27/2005 10:30 01/27/2005 AM [facility] 10:37 AM [facility] Jean Leija PA-C LAB - MICRO GENERAL ORDERABL ES Performing Organization Address City/State/ZIP Code Phon e Number [facility] documented in this encounter Visit Diagnoses Not on filedocumented in this encounter
--- OUTSIDE RECORDS SUMMARY | 2022-08-27 18:38 | XMS_ITS | Encounter Summary ---
:1985 Author Organization [facility] Address [address] [address] Care Team Providers Name Role Phone Unavailable Primary Care Provider Unavailable Reason for Visit Reason Comments Depression Registry Call 1 Encounter Details Date Type Department Care Team Description 02/18/2020 Telephone Pasquale Ragland De pression Registry Medicine MD Call [address] [place] [address] [place] [address] [phone] (Wo rk) Social History Tobacco Use Types Packs/Day Years Used Date Smoking Tobacco: Some Days Cigarettes 1 10 Smokeless Tobacco: Current Chew Alcohol Use Standard Drinks/Week Comments Yes 24 (1 standard drink = 0.6 oz pure alcoh ol) Sex Assigned at Date Recorded Not on file documented as of this encounter Plan of Treatment Not on filedocumented as of this encounter Visit Diagnoses Not on filedocumented in this encounter
--- OUTSIDE RECORDS SUMMARY | 2022-08-27 18:38 | XMS_ITS | Encounter Summary ---
:1985 Author Organization [facility] Address [address] [place] [address]. [place] [address] Care Team Providers Name Role Phone Unavailable Primary Care Provider Unavailable Encounter Details Date Type Department Care Team Description 09/03/2004 Emergency room Andres Baron Ma, MD EMERGENCY PHYS[facility] [place] [address] [facility] [address] [place], [place] [address] (Wo rk) Social History Tobacco Use Types Packs/Day Years Used Date Never Assessed Sex Assigned at Date Recorded Not on file documented as of this encounter ED Notes Andres Baron - 09/03/2004 12:00 AM CDT : 85 CHIEF COMPLAINT: Left ankle injury. HISTORY OF PRESENT ILLNESS: This is an 18-year-old young man who stepped in a hole last night around midnight and rolled his left ankle. He really was not able to ambulate after that and has not been since. He has been using some crutches because of significant pain. He denies any other injury. Does not hurt up in his knee or along his foot. PAST MEDICAL HISTORY: He is otherwise healthy. MEDICATIONS: None. ALLERGIES: NONE. REVIEW OF SYMPTOMS: All systems negative except for that stated above. SOCIAL HISTORY: Patient is single, lives in [place]. Work doing construction, mostly caulking windows. PHYSICAL EXAM: Temperature 99.1, pulse 75, respirations 20, blood pressure 135/78. Oxygen saturation 98%. Patient alert, cooperative, in no respiratory distress. The rest of the exam is isolated to his affected extremity. LEFT LOWER EXTREMITY: He has no tenderness, deformity, or other abnormality upper leg, thigh, or knee. Below the knee he has no tenderness to proximal fibula or along the calf at all until you get to the lateral ankle. He has tenderness and swelling over that region, a little bit on the medial ankle but the foot was otherwise normal, no swelling, no tenderness, and normal CMS. I tested his strength after I got x-ray as far as did a drawer test on the ankle and there was no instability. EMERGENCY DEPARTMENT COURSE: X-ray was done and that showed no sign of fracture. CLINICAL IMPRESSION: Left ankle sprain, probably grade II, no instability. CLINICAL PLAN: Ibuprofen 600 mg every eight hours, Percocet 1-2 tablets every 4-6 hours, I dispensed #12. Ice, rest. He already has crutches that he can use. I put him into an air splint and that seemed to fit well. He is to follow up in one week for recheck. [id number] ANDRES BARON MD MT: Document: [id number] [place], [place] Name: MR#: TANG SCHMIDT [id number] EMERGENCY ROOM ENCOUNTER Page 2 of 2 LCN: AMADEO DSC: 09/03/2004 [place], [place] Name: MR#: TANG SCHMIDT -02 : Admit Date: Account #: 1985 09/03/2004 [id number] Doctor: ANDRES BARON MD EMERGENCY ROOM ENCOUNTER Page 1 of 2 documented in this encounter Plan of Treatment Not on filedocumented as of this encounter Visit Diagnoses Not on filedocumented in this encounter
--- OUTSIDE RECORDS SUMMARY | 2022-08-27 18:38 | XMS_ITS | Encounter Summary ---
:1985 Author Organization [facility] Address [address] [place] [address]. [place] [address] Care Team Providers Name Role Phone Unavailable Primary Care Provider Unavailable Encounter Details Date Type Department Care Team Description 06/07/2007 Emergency room Sam Villa MD [address] [facility] [place] [address] Social History Tobacco Use Types Packs/Day Years Used Date Never Assessed Sex Assigned at Date Recorded Not on file documented as of this encounter Progress Notes Interface, Goldsmith Apprentice - 06/27/2007 7:13 AM CDT FINAL CHIEF COMPLAINT: Severe headache and itching. HISTORY OF PRESENT ILLNESS: The patient is a 21-year-old male who just returned from a [place] trip this morning. He says before he left on the fishing trip on the , he noted that he had amild headache in both temples that became worse [place]. Now, he says he has a headache that varies from a 2 to 8/10 on the pain scale. It is sharp, throbbing in both temples, his forehead and behind his eyes. His neck is sore. He has been nauseated, but has not vomited for about 48 hours. His appetite has been decreased and is somewhat better. He has had normal stools. He has not had any numbness or tingling. He says his legs have felt weak and he has decreased energy. He has felt feverish for the past 3 days. He has had a mild sore throat today and an occasional cough that is nonproductive. The patient denies any trauma. MEDICATIONS: None. ALLERGIES: None. PAST MEDICAL HISTORY: He has had previous headaches that were similar to when he was a teenager that were relieved with tooth braces. The patient is up to date on vaccinations. SOCIAL HISTORY: He is here with his mother and girlfriend. He smokes a pack of cigarettes a day. 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 REVIEW OF SYSTEMS: All other systems are negative. PHYSICAL EXAMINATION: GENERAL: Alert male. VITAL SIGNS: Temperature 99.4, pulse 88, respirations 12, blood pressure 119/75 and pulse ox 99% onroom air. HEENT: Shows that his fundi are normal. Tympanic membranes are slightly hyperemic. Mouth and pharynx are mildly red. There are no pustules, exudates or swelling. NECK: Supple. LYMPHATICS: Negative. CHEST: Shows clear equal breath sounds. CARDIOVASCULAR: Regular S1 and S2 without murmur. ABDOMEN: Bowel sounds are active and soft, not especially tender. There are no masses or guarding. It is scaphoid. BACK: Negative. EXTREMITIES: Normal. SKIN: Shows that he has scattered patches of poison berto on his lower extremities that are crusted. NEUROLOGIC: Within normal limits. LABORATORY DATA: White count 6600, hemoglobin 14.7, platelets 192,000, 52 PMNs and 27 lymphs. Sed rate 8. Basic metabolic panel is normal. Glucose is 90. CSF shows protein 40. Glucose 53, 3 white cells, 0 red cells. Gram stain is negative. Culture is pending. Head CT without contrast is negative. EMERGENCY DEPARTMENT COURSE: The situation was discussed with the patient when he arrived in the department and I advised him he should have a spinal tap since he could have meningitis or some other untoward intracranial event and he was in agreement with that and signed consent after the risks and benefits were discussed. We started an IV of normal saline at 100 cc an hour and medicated him with 30mg of Toradol, 10 mg of Nubain and 20 mg of Decadron, all IV with improvement in his symptoms. Laterthe 10 mg of Nubain was repeated IV once. At this point, the patient is comfortable. His workup is benign. He may have a viral syndrome. This could be mycoplasma. We will continue him on steroids and cover him with Zithromax for now. The discharge plan was reviewed with him and his family. PROCEDURE NOTE: Spinal tap. The patient was placed in the sitting position and the L4-L5 inner space was palpated and marked. The skin was prepped with Betadine and anesthetized with 1% Xylocaine. Then an atraumatic needle was used to cannulate the dural sac. Spinal fluid was collected in four tubes of 1 cc each which were sent off for routine analysis. The closing pressure was 11 cm of water. The needle was withdrawn and the wound was dressed with a Band-Aid. The patient tolerated the procedure. There were no complications. DISCHARGE PLAN: The patient is to rest at home. He is prescribed a Medrol Dosepak to be taken as directed and Zithromax 500 mg now and 250 mg a day for 4 more days and Vicodin 5/500 one every 4 hours as needed for pain, 15. He is to lie down for the next 24 hours. He should drink extra fluids. He is to be rechecked with his doctor if he is worse anytime or in 3-5 days and he may return to emergency department as needed. DIAGNOSES: 1. Severe headache. 2. Upper respiratory infection. Electronically signed on 06/27/2007 07:13 by SAM VILLA MD MT: [id number] Name: BRITTNEY SCHMIDT Account: [id number] : 1985 Visit Date: 06/07/2007 Document: [id number] documented in this encounter Plan of Treatment Not on filedocumented as of this encounter Visit Diagnoses Not on filedocumented in this encounter
--- OUTSIDE RECORDS SUMMARY | 2022-08-27 18:38 | XMS_ITS | Encounter Summary ---
:1985 Author Organization [facility] Address [address] [place] [address] Care Team Providers Name Role Phone Unavailable Primary Care Provider Unavailable Encounter Details Date Type Department Care Team Description 08/14/2009 [facility] Jude Nicholas MD Social History Tobacco Use Types Packs/Day Years Used Date Never Assessed Sex Assigned at Date Recorded Not on file documented as of this encounter Plan of Treatment Not on filedocumented as of this encounter Visit Diagnoses Not on filedocumented in this encounter
--- OUTSIDE RECORDS SUMMARY | 2022-08-27 18:38 | XMS_ITS | Encounter Summary ---
:1985 Author Organization [facility] Address [address] [place] [address] Care Team Providers Name Role Phone Unavailable Primary Care Provider Unavailable Encounter Details Date Type Department Care Team Description 09/03/2004 Results Only Andres Crabtree Ma, MD [facility]Y [facility] [address] [place] [address] (Wo rk) Social History Tobacco Use Types Packs/Day Years Used Date Never Assessed Sex Assigned at Date Recorded Not on file documented as of this encounter Plan of Treatment Not on filedocumented as of this encounter Procedures Procedure Name Priority Date/Time Associated Diagnosis Comme nts HC X-RAY ANKLE >=3 STAT 09/03/2004 12:03 PM Re sults for this VIEWS CDT procedure are i n the results section. documented in this encounter Results X-RAY ANKLE 3+ VW (09/03/2004 12:03 PM CDT) Specimen (Source) Anatomical Collection Method Collection Time Re ceived Time Location / / Volume Laterality 09/03/2004 12:03 PM CDT Impressions Pacs, Data Conversion - 09/04/2004 11:49 AM CDT THREE VIEWS LEFT ANKLE ?? HISTORY: ??Pain. ?? FINDINGS: ??Negative. Andres Crabtree MD GENERAL IMAGING documented in this encounter Visit Diagnoses Not on filedocumented in this encounter
--- OUTSIDE RECORDS SUMMARY | 2022-08-27 18:38 | XMS_ITS | Encounter Summary ---
:1985 [facility] Address [address] [place] [address] Care Team Providers Name Role Phone Unavailable Primary Care Provider Unavailable Reason for Visit Reason Comments Refill sertraline (ZOLOFT) 100 MG t ablet [Pharmacy Med Name: SERTRALINE 100MG TABLETS] Encounter Details Date Type Department Care Team Description 10/17/2019 Refill [facility] Vinny Mccloud MD Refill (sertraline Medicine [address] (ZOLOFT) 100 MG tablet [address] [place] [address] [Pharmacy Med Name: [place] [address] SERTRALINE 100MG [phone] TABLETS]) Social History Tobacco Use Types Packs/Day Years Used Date Smoking Tobacco: Some Days Cigarettes 1 10 Smokeless Tobacco: Current Chew Alcohol Use Standard Drinks/Week Comments Yes 24 (1 standard drink = 0.6 oz pure alcoh ol) Sex Assigned at Date Recorded Not on file documented as of this encounter Nursing Notes Elsie Preston, RN - 10/17/2019 2:53 PM CST Further Assistance Needed on Refill from Clinician RN reviewed. Medication ordered for short term. Please advise if [facility] supply is appropriate Last qualifying visit: 07/22/2019 (with RAMON MCCLOUD) ? Next scheduled visit: None ? Review pended order for accuracy. Sign if appropriate. Document if appointment is needed for furtherrefills. Route to care team to notify patient if needed. Requested Prescriptions Pending Prescriptions Disp Refills ??? sertraline (ZOLOFT) 100 MG tablet [Pharmacy Med Name: SERTRALINE 100MG TABLETS] 90 Tablet 3 Sig: TAKE 1 TABLET BY MOUTH EVERY DAY H GRINDER Interface, Out [employer] Prov Query - 10/17/2019 2:01 PM CST sertraline (ZOLOFT) 100 MG tablet [Pharmacy Med Name: SERTRALINE 100MG TABLETS] Medication started: 04/23/2019 Last ordered by RAMON MCCLOUD (87 days ago) QTY: 90, Refills: 0, Sig: take 1 tablet by mouth daily. (changed but equivalent) -> Refill x 12 months, qty: 90, refills: 3 (until due for an office visit) Last qualifying visit: 07/22/2019 (with RAMON MCCLOUD) Next scheduled visit: None SBP: 138 mm Hg on 07/22/2019 DBP: 74 mm Hg on 07/22/2019 Powered by [employer], Reference: [id number], 10/17/2019 2:01:07 PM BENCH GRINDER, Pool: DELFINA SOLITARIOED REFILL ([id number]) H GRINDER documented in this encounter Plan of Treatment Not on filedocumented as of this encounter Visit Diagnoses Not on filedocumented in this encounter
--- OUTSIDE RECORDS SUMMARY | 2022-08-27 18:38 | XMS_ITS | Clinical Summary ---
:1985 Author Organization [facility] Address [address] [place] [address] Care Team Providers Name Role Phone Unavailable Primary Care Provider Unavailable Source Comments You are receiving this document as you are listed as the primary care provider,follow-up provider, or the patient has been referred to you for consultation.This is in compliance with the Medicare and Medicaid EHR Incentive Program,which states Providers who transition their patient to another setting of careor provider of care or refers their patient to another provider of care shouldprovide summarycare record for each transition of care or referral. [facility] Allergies No known active allergies Medications Medication Sig Dispensed Refills Start Date End Date Status hydrOXYzine HCl Take 25 mg by 0 07/07/2019 Active (ATARAX) 25 MG tablet mouth as needed. permethrin (ELIMITE) 5 Apply to entire 0 07/07/2019 Active % cream body from the neck down and leave on for 8 hours. Then rinse and repeat this in one week. sertraline (ZOLOFT) 100 TAKE 1 TABLET BY 90 Tablet 1 9 Active MG tablet MOUTH EVERY DAY Immunizations Name Administration Dates Next Due Flu Vac (3+ yrs) 11/21/2016 Flu Vac Preserv Free (3+yrs) 11/29/2016 Influenza (Flucelvax), Preserv Free QIV 09/09/2017 MMR 07/28/1997 Td 05/29/2004, 06/08/2001, 07/28/1997 Tdap 03/05/2016 Family History Medical History Relation Name Comments Diabetes Father Relation Name Status Comments Father Alive Mother Alive Social History Tobacco Use Types Packs/Day Years Used Date Smoking Tobacco: Some Days Cigarettes 1 10 Smokeless Tobacco: Current Chew Alcohol Use Standard Drinks/Week Comments Yes 24 (1 standard drink = 0.6 oz pure alcoh ol) Sex Assigned at Date Recorded Not on file Last Filed Vital Signs Vital Sign Reading Time Taken Comments Blood Pressure 138/74 07/22/2019 3:43 PM CDT Pulse 78 07/22/2019 3:43 PM CDT Temperature - - Respiratory Rate - - Oxygen Saturation - - Inhaled Oxygen Concentration - - Weight 101.6 kg (224 lb) 07/22/2019 3:43 PM CDT Height - - Body Mass Index - - Plan of Treatment Health Maintenance Due Date Last Done Comments Hep C Screening (Preventive 1985 Services) HepB (1) 1985 COVID-19 Vaccine (#1) 03/15/1986 Pneumococcal (1 - PCV) 1991 HIV Screening (Preventive 2001 Services) Adult Preventive Visit 2003 Cholesterol 2020 Influenza (#1) 2022 09/09/2017, 11/29/2016, 11/21/2016 DTaP/Tdap/Td (5 - Tdap) 03/05/2026 03/05/2016, 05/29/2004, 06/08/2001, Additional history exists Zoster/Shingles (1 of 2) 2035 HPV Vaccine Aged Out No longer eligib le based on patient 's age to complete this topic HepA Aged Out No longer eligib le based on patient 's age to complete this topic Hib Aged Out No longer eligib le based on patient 's age to complete this topic IPV (Polio) Aged Out No longer eligib le based on patient 's age to complete this topic MCV4 Aged Out No longer eligib le based on patient 's age to complete this topic Insurance Payer Benefit Subscriber ID Effective Phone Address Type Plan / Dates Group [facility] [place] [id number] 2020-Pr [phone] [place] [employer] esent [id number] [employer] [address] [address] [place] [address]
--- OUTSIDE RECORDS SUMMARY | 2022-08-27 18:38 | XMS_ITS | Encounter Summary ---
:1985 Author Organization [facility] Address [address] [place] [address]. [place] [address] Care Team Providers Name Role Phone Unavailable Primary Care Provider Unavailable Encounter Details Date Type Department Care Team Description 03/07/2007 Emergency room Pineda Vega MD EMERGENCY PHYSIC [facility] [address] [place], [place] [address] (Wo rk) Social History Tobacco Use Types Packs/Day Years Used Date Never Assessed Sex Assigned at Date Recorded Not on file documented as of this encounter Progress Notes Pineda Vega - 03/12/2007 7:59 PM CDT FINAL CHIEF COMPLAINT: Left facial swelling and pain. HISTORY OF PRESENT ILLNESS: The patient is a 21-year-old male who presents to the Emergency Department complaining of left ear pain, swelling and redness. He states that his symptoms began 2 days prior and have slowly worsened. He denies any fevers. He states he is able to move his mandible without difficulty. He denies any hearing problems. He denies any cough or cold symptoms. He complains of swelling to the area just in front of his left ear. He states he has not had similar symptoms in the past. He denies any traumatic injuries. He denies any other complaints. PAST MEDICAL HISTORY: The patient denies any medical problems. MEDICATIONS: None. ALLERGIES: No known drug allergies. SOCIAL HISTORY: He does smoke cigarettes, denies alcohol use. FAMILY HISTORY: Noncontributory. REVIEW OF SYSTEMS: As noted in the HPI. All other systems are negative. PHYSICAL EXAMINATION: GENERAL: The patient is alert and appropriate. VITAL SIGNS: Temperature 98.3, pulse 87, respiratory rate 20, blood pressure 140/84 and oxygen saturation 98% on room air. HEENT: The patient has swelling and tenderness to palpation and some erythemaanterior to the left ear. The area is approximately 2 cm x 2 cm, mobile, indurated. There is no fluctuance. The patient has full range of motion of the mandible. There is no tenderness to palpation of the parotid gland. TMs are clear. Eye exam is normal. Remainder of HEENT exam is normal. NECK: No lymphadenopathy or masses; full range of motion. LUNGS: Clear to auscultation bilaterally. CARDIAC: Regular rate and rhythm. No murmurs, gallops or rubs. Remainder of exam is normal. EMERGENCY DEPARTMENT COURSE: I felt the patient had a lymphadenitis involving his left preauricularlymph node. I discussed treatment options with the patient. We elected to perform a needle aspiration. PROCEDURE NOTE: I prepped the affected area with Betadine, injected 1% lidocaine with epinephrine and proceeded to attempt a needle aspiration with a 19-gauge needle. I was unable to obtain any purulent material. I felt comfortable discharging the patient home with prescription for Augmentin 875 mg twice daily for 10 days, Darvocet 1 to 2 tabs p.o. q.4-6h. as needed. Motrin and warm packs, return if worse, follow up with PMD 72 hours for re-evaluation. DIAGNOSIS: Left facial swelling and pain. Electronically signed on 03/12/2007 19:58 by PINEDA VEGA MD MT: [id number] Name: BRITTNEY SCHMIDT Account: [id number] : 1985 Visit Date: 03/07/2007 Document: [id number] documented in this encounter Plan of Treatment Not on filedocumented as of this encounter Visit Diagnoses Not on filedocumented in this encounter
--- OUTSIDE RECORDS SUMMARY | 2022-08-27 18:38 | XMS_ITS | Encounter Summary ---
:1985 Author Organization [facility] Address [address] [place] [address] Care Team Providers Name Role Phone Unavailable Primary Care Provider Unavailable Reason for Referral Consult/Transfer Care (Routine) - Incomplete Specialty Diagnoses / Procedures Referred By Contact Refer red To Contact Diagnoses Recurrent major depressive disorder, remission status unspecified (HRC) [place] [address] [address] [address] Referral ID Status Reason Start Date Expiration Date Visits V isits Requested Authorized [id number] Incomplete 07/22/2019 10/20/2020 1 1 Scheduling Instructions Your provider has recommended an appoint ment with Behavioral Health. You may call [phone] to schedule your appointmen t. This recommended service/s may not be covered by your health plan (health insu eli). To find out your specific benefit coverage, please call the number on your insurance card.?? Please note that in order to maintain access for all patients, [facility] does have a late cancellation policy. In order to avoid being restrict ed from scheduling future appointments in Behavioral Health you will need to cance l at least 24 hours in advance. We request you that you arrive 30 minutes before yo ur first appointment to complete paperwork. Reason for Visit Reason Comments CONSULT anxiety and depression Encounter Details Date Type Department Care Team Description 07/22/2019 Office Visit Pasquale Ragland, Marley current major depressive disorder, remission status unspecified (HRC) (Primary Dx); Medicine Anxiety [id number] [address] [address] [address] [address] [phone] (Wo rk) Social History Tobacco Use Types [...] Index - - documented in this encounter Progress Notes Pasquale Velez MD - 07/22/2019 3:30 PM CDT SUBJECTIVE: 33-year-old male who presents to clinic for evaluation of depression, anxiety and ADHD. His previousphysician started him on sertraline at 50 mg daily and now he is at 100 mg daily. Patient reports this medication has been very helpful with his depression and anxiety symptoms. Patient reports his dad was in a bad motor vehicle accident about 10 years ago. Since then his dad'sbusiness has lost a lot of money and they are expecting it will need to close. 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 He has a good relationship with his girlfriend and his [id number] daughter. Patient reports he was diagnosed with ADHD as a teenager. He never had any treatment for that. He also had a counseling session which he thought was helpful. He is looking into insurance coverageto continue this. Patient's main concern today is that his ADHD is untreated and probably contributing to his anxiety levels. His depression is much improved. He has no thoughts of harming himself or others. Past Medical History Reviewed and updated in EMR. No past surgical history on file. Current Outpatient Medications Medication Sig Dispense Refill ??? hydrOXYzine HCl (ATARAX) 25 MG tablet Take 25 mg by mouth as needed. ??? permethrin (ELIMITE) 5 % cream Apply to entire body from the neck down and leave on for 8 hours.Then rinse and repeat this in one week. ??? sertraline (ZOLOFT) 100 MG tablet Take 1 Tablet by mouth daily. 90 Tablet 0 No current facility-administered medications for this visit. No Known Allergies Social History Socioeconomic History ??? Marital status: Spouse name: Not on file ??? Number of children: Not on file ??? Years of education: Not on file ??? Highest education level: Not on file Occupational History ??? Not on file Social Needs ??? Financial resource strain: Not on file ??? Food insecurity: Worry: Not on file Inability: Not on file ??? Transportation needs: Medical: Not on file Non-medical: Not on file Tobacco Use ??? Smoking status: Current Some Day Smoker Packs/day: 1.00 Years: 10.00 Pack years: 10.00 Types: Cigarettes ??? Smokeless tobacco: Current User Types: Chew Substance and Sexual Activity ??? Alcohol use: Yes Alcohol/week: 24.0 standard drinks Types: 24 Cans of beer per week ??? Drug use: Not Currently ??? Sexual activity: Yes Partners: Female Lifestyle ??? Physical activity: Days per week: Not on file Minutes per session: Not on file ??? Stress: Not on file Relationships ??? Social connections: Talks on phone: Not on file Gets together: Not on file Attends bahai service: Not on file Active member of club or organization: Not on file Attends meetings of clubs or organizations: Not on file Relationship status: Not on file ??? Intimate partner violence: Fear of current or ex partner: Not on file Emotionally abused: Not on file Physically abused: Not on file Forced sexual activity: Not on file Other Topics Concern ??? Not on file Social History Narrative ??? Not on file REVIEW OF SYSTEMS: Patient otherwise feels well and denies headaches, dizziness, chest pain, palpitations, shortness ofbreath, cough, dyspnea on exertion, abdominal pain, nausea, vomiting, diarrhea, urinary frequency and dysuria, rashes, fevers, fatigue, swelling. EXAMINATION: VITAL SIGNS: Please see EMR. GENERAL: Patient is alert, oriented, and in no apparent distress. HEENT: Within normal limits. Neck is supple without adenopathy, JVD or thyroid abnormality. CARDIOVASCULAR: Regular rate and rhythm without murmurs, rubs, gallops. LUNGS: Clear. ABDOMEN: Soft, nontender, and nondistended with normal bowel sounds. No organomegaly or palpable masses. EXTREMITIES: Reveal good pulses with no edema. ASSESSMENT/PLAN: Anxiety, depression and ADHD. So far the sertraline has been very helpful for his anxiety and depression. His ADHD remains undiagnosed and untreated. Will refer him to our mental Health Department for ADHD assessment. I refilled his sertraline at 100 mg daily. documented in this encounter Plan of Treatment Scheduled Referrals Name Type Priority Associated Diagnoses Order S [facility] Behavioral Health Referral Routine Recurrent major depress lydia Ordered: 07/22/2019 disorder, remission status unspecified (HRC) documented as of this encounter Visit Diagnoses Diagnosis Recurrent major depressive disorder, rem ission status unspecified (HRC) - Primary Anxiety Anxiety state, unspecified documented in this encounter
--- OUTSIDE RECORDS SUMMARY | 2022-08-27 18:38 | XMS_ITS | Encounter Summary ---
:1985 Author Organization [facility] Address [address] [place] [address] Care Team Providers Name Role Phone Harley Wheeler MD Primary Care Provider Duy Torres MD Unavailable Encounter Details Date Type Department Care Team Description 11/03/2019 Travel Social History Tobacco Use Types Packs/Day Years Used Date Current Every Day Smoker Cigarettes 1 Alcohol Use Standard Drinks/Week Comments Not Asked 0 (1 standard drink = 0.6 oz pure alcoho l) Sex Assigned at Date Recorded Not on file documented as of this encounter Plan of Treatment Not on filedocumented as of this encounter Visit Diagnoses Not on filedocumented in this encounter Care Teams Auto Hiker Relationship Specialty Start Date End Date Harley Wheeler MD PCP - General 11/03/19 [facility] [address] [place] [address] Duy Torres MD MD Dermatology 11/03/19 [address] [place], [place] [address] documented as of this encounter
--- OUTSIDE RECORDS SUMMARY | 2022-08-27 18:38 | XMS_ITS | Encounter Summary ---
:1985 Author Organization [place] Address [address] [place] [address] Care Team Providers Name Role Phone Unavailable Primary Care Provider Unavailable Encounter Details Date Type Department Care Team Description 06/07/2007 Historic Results INTERFACED REPORT Daniel Trevino DO NOT USE Social History Tobacco Use Types Packs/Day Years Used Date Never Assessed Sex Assigned at Date Recorded Not on file documented as of this encounter Plan of Treatment Not on filedocumented as of this encounter Procedures Procedure Name Priority Date/Time Associated Comments Diagnosis PROTEIN TOTAL CSF STAT 06/07/2007 3:30 PM Resu lts for this CDT procedure are i n the results section. GRAM STAIN Routine 06/07/2007 3:30 PM Results f or this CDT procedure are i n the results section. GLUCOSE CSF STAT 06/07/2007 3:30 PM Results f or this CDT procedure are i n the results section. CSF CULTURE AEROBIC Routine 06/07/2007 3:30 PM Re sults for this BACTERIAL CDT procedure are i n the results section. CELL COUNT WITH STAT 06/07/2007 3:30 PM Result s for this DIFFERENTIAL CSF CDT procedure a re in the results section. HEMOGRAM DIFFERENTIAL STAT 06/07/2007 1:50 PM Results for this AND PLATELET CDT procedure are i n the results section. ERYTHROCYTE STAT 06/07/2007 1:50 PM Results f or this SEDIMENTATION RATE CDT procedure are in AUTO the results section. BASIC METABOLIC PANEL STAT 06/07/2007 1:50 PM Results for this CDT procedure are i n the results section. documented in this encounter Results Glucose CSF (06/07/2007 3:30 PM CDT) athologist Signature Glucose CSF 53 40 - 70 MISYS mg/dL Comment: CSF glucose concentrations are about 60 percent of normal plasma glucose. Specimen Anatomical Collection Method Collection Time Receive d Time (Source) Location / / Volume Laterality 06/07/2007 3:30 PM 7 1:19 CDT PM CDT Sam Iyer MD LAB - CSF ORDERABLES Performing Organization Address [facility] Phon e Number MISYS Protein total CSF (06/07/2007 3:30 PM CDT) athologist Signature Protein Total 40 15 - 60 MISYS CSF mg/dL Specimen Anatomical Collection Method Collection Time Receive d Time (Source) Location / / Volume Laterality 06/07/2007 3:30 PM 7 1:19 CDT PM CDT Sam Iyer MD LAB - CSF ORDERABLES Performing Organization Address [facility] Phon e Number MISYS Cell count with differential CSF (06/07/2007 3:30 PM CDT) [facility] Method Time Signature Tube Number 4 # MISYS Color CSF Colorless CLRL MISYS Appearance CSF Clear CLER MISYS WBC CSF 3 0 - 5 /uL MISYS RBC CSF 0 0 - 2 /uL MISYS Specimen Anatomical Collection Method Collection Time Receive d Time (Source) Location / / Volume Laterality 06/07/2007 3:30 PM 7 1:19 CDT PM CDT Sam Iyer MD LAB - CSF ORDERABLES Performing Organization Address [facility] Phon e Number MISYS CSF culture (06/07/2007 3:30 PM CDT) Component Value Ref Test Analysis Performed At Patholo gist Range Method Time Signature Specimen Cerebrospinal MISYS Description fluid Culture Micro No growth after MISYS 2 days Micro Report FINAL [id number] MISYS Status Specimen Anatomical Collection Method Collection Time Receive d Time (Source) Location / / Volume Laterality 06/07/2007 3:30 PM 7 3:54 CDT PM CDT [facility] LAB - MICRO GENERAL ORDERABL ES Performing Organization Address [facility] Phon e Number MISYS Gram stain (06/07/2007 3:30 PM CDT) Component Value Ref Test Analysis Performed At [facility] Range Method Time Signature Specimen Cerebrospinal MISYS Description fluid Gram Stain No organisms MISYS seen Comment: Gram stain review consistent wi th reported results. Micro Report Status FINAL [id number] MISYS Specimen Anatomical Collection Method Collection Time Receive d Time (Source) Location / / Volume Laterality 06/07/2007 3:30 PM 7 3:54 CDT PM CDT Clinic [facility] LAB - MICRO GENERAL ORDERABL ES Performing Organization Address City/[facility] Phon e Number MISYS Basic metabolic panel (06/07/2007 1:50 PM CDT) athologist Signature Sodium 138 133 - 144 MISYS mmol/L Potassium 4.3 3.4 - 5.3 MISYS mmol/L Chloride 101 94 - 109 MISYS mmol/L Carbon Dioxide 28 20 - 32 MISYS mmol/L Glucose 90 60 - 99 MISYS mg/dL Urea Nitrogen 13 5 - 24 MISYS mg/dL Creatinine 1.05 0.80 - MISYS 1.50 mg/dL GFR Estimate >90 >60 MISYS mL/min/1.7 m2 GFR Estimate If >90 >60 MISYS Black mL/min/1.7 m2 Calcium 8.9 8.5 - 10.4 MISYS mg/dL Anion Gap 9 6 - 17 MISYS mmol/L Specimen Anatomical Collection Method Collection Time Receive d Time (Source) Location / / Volume Laterality 06/07/2007 1:50 PM 7 1:19 CDT PM CDT Sam Iyer MD LAB - BLOOD ORDERABLES Performing Organization Address [facility] Phon e Number MISYS (ABNORMAL) Hemogram differential and platelet (06/07/2007 1:50 PM CDT) [facility] Method Time Signature MCV 87 78 - 100 MISYS fl MCH 31.1 26.5 - MISYS 33.0 pg MCHC 35.7 31.5 - MISYS 36.5 g/dL RDW 12.5 10.0 - MISYS 15.0 % WBC 6.6 4.0 - MISYS 11.0 10e9/L RBC Count 4.72 4.4 - 5.9 MISYS 10e12/L Hemoglobin 14.7 13.3 - MISYS 17.7 g/dL Hematocrit 41.2 40.0 - MISYS 53.0 % % Neutrophils 52 40 - 75 % MISYS % Lymphocytes 27 20 - 48 % MISYS % Monocytes 18 (H) 0 - 12 % MISYS % Eosinophils 2 0 - 6 % MISYS % Basophils 1 0 - 2 % MISYS Platelet Count 192 150 - 450 MISYS 10e9/L Absolute 3.4 1.6 - 8.3 MISYS Neutrophil 10e9/L Absolute 1.8 0.8 - 5.3 MISYS Lymphocytes 10e9/L Absolute 1.2 0.0 - 1.3 MISYS Monocytes 10e9/L Absolute 0.1 0.0 - 0.7 MISYS Eosinophils 10e9/L Absolute 0.1 0.0 - 0.2 MISYS Basophils 10e9/L Diff Method Automated MISYS Method Specimen Anatomical Collection Method Collection Time Receive d Time (Source) Location / / Volume Laterality 06/07/2007 1:50 PM 7 1:19 CDT PM CDT Sam Iyer MD LAB - BLOOD ORDERABLES Performing Organization Address City/[facility] Phon e Number MISYS Erythrocyte sedimentation rate auto (06/07/2007 1:50 PM CDT) P athologist Signature Sed Rate 8 0 - 15 mm/h MISYS Specimen Anatomical Collection Method Collection Time Receive d Time (Source) Location / / Volume Laterality 06/07/2007 1:50 PM 7 1:19 CDT PM CDT Sam Iyer MD LAB - BLOOD ORDERABLES Performing Organization Address [facility] Phon e Number MISYS documented in this encounter Visit Diagnoses Not on filedocumented in this encounter
--- OUTSIDE RECORDS SUMMARY | 2022-08-27 18:38 | XMS_ITS | Encounter Summary ---
:1985 Author Organization [facility] [place] Address [address] [place] [address] Care Team Providers Name Role Phone Harley Wheeler MD Primary Care Provider Duy Torres MD Unavailable Reason for Referral Consultation (Routine) - Closed Specialty Diagnoses / Procedures Referred By Contact Refer red To Contact Diagnoses Chronic pruritic rash in adult Generic External Data Department Referral ID Status Reason Start Date Expiration Date Visits Requ ested Visits Authorized [id number] Closed 11/03/2019 11/02/2020 1 1 Encounter Details Date Type Department Care Team Description 11/03/2019 Transcribe Orders GENERIC EXTERNAL Provider, Generic C hronic pruritic DATA DEPARTMENT External Data rash in gill lt (Primary Dx) Social History Tobacco Use Types Packs/Day Years Used Date Current Every Day Smoker Cigarettes 1 Alcohol Use Standard Drinks/Week Comments Not Asked 0 (1 standard drink = 0.6 oz pure alcoho l) Sex Assigned at Date Recorded Not on file documented as of this encounter Plan of Treatment Scheduled Referrals Name Type Priority Associated Diagnoses Order S chedule DERMATOLOGY REFERRAL Referral Routine Chronic Pruritic Kevin h In Ordered: 11/03/2019 Adult documented as of this encounter Visit Diagnoses Diagnosis Chronic pruritic rash in adult - Primary documented in this encounter Care Teams Roustabout Crew Leader Relationship Specialty Start Date End Date Harley Wheeler MD PCP - General 11/03/19 [facility] [address] [place] [address] (Gdob) Duy Torres MD MD Dermatology 11/03/[address] [place] [id number] documented as of this encounter
--- OUTSIDE RECORDS SUMMARY | 2022-08-27 18:38 | XMS_ITS | Clinical Summary ---
:1985 Author Organization [facility] [place] [address] Care Team Providers Name Role Phone Pcp, No Primary Care Provider Unavailable Allergies No known active allergies Medications Medication Sig Dispensed Refills Start Date End Date Status chlorhexidine Apply topically 0 01/20/2020 Active (HIBICLENS) 4 % to affected external liquid area(s). nystatin (MYCOSTATIN) Apply topically 0 01/20/2020 Active ointment to affected area(s). sertraline (ZOLOFT) Take 2 tablets by 180 tablet 3 02/02/2020 Active 100 mg mouth once daily. tabletIndications: Depression, major, single episode, severe (HC) triamcinolone Apply topically 80 g 0 04/19/2021 Active (ARISTOCORT) 0.1 % to affected ointmentIndications: area(s) 2 times Dermatitis daily. Do not use for more than 2 weeks straight in 1 area. imiquimod 5% cream Apply 1 Packet 1 box 0 04/21/2021 Active (ALDARA) 5 % topically to creamIndications: affected area(s) Genital warts every Saturday, Saturday and Saturday. Apply at bedtime and leave on skin for 8 hours. Active Problems Problem Noted Date Tobacco dependence 12/17/2016 Resolved Problems Problem Noted Date Resolved Date Viral meningitis 11/25/2007 01/05/2019 Immunizations Name Administration Dates Next Due Influenza, IIV3 (Age >=3 years) 11/21/2016 Influenza, IIV4 02/02/2020 MMR 07/28/1997 Td (Age >=7 Years) 05/29/2004, 06/08/2001, 07/28/1997 Tdap 03/05/2016 Family History Medical History Relation Name Comments Alcoholism Father D/C Etoh with dx of T2DM Diabetes type II Father Hypertension Father Osteoarthritis Mother Relation Name Status Comments Brother Alive Half-brother Father Alive Mother Alive Social History Tobacco Use Types Packs/Day Years Used Date Current Every Day Smoker Cigarettes 1 Smokeless Tobacco: Current User Chew Tobacco Cessation: Ready to Quit: No; Co unseling Given: Yes Alcohol Use Standard Drinks/Week Comments Yes 0 (1 standard drink = 0.6 oz pure alcoho l) 24 beers on the weekends Alcohol Habits Answer Date Recorded How often do you have a drink containing 2-4 times a month 02/02/2020 alcohol? How many drinks containing alcohol do you have 10 or more 02/02/2020 on a typical day when you are drinking? How often do you have six or more drinks on Weekly 02/02/2020 one occasion? Comment: 24 beers on the weekends 01/05/2019 Sex Assigned at Date Recorded Not on file Obstetrics History Last Filed Vital Signs Vital Sign Reading Time Taken Comments Blood Pressure 143/89 12/23/2020 9:09 AM MARINE FUEL DOCK ATTENDANT Pulse 83 12/23/2020 9:07 AM MARINE FUEL DOCK ATTENDANT Temperature 36.9 ??C (98.5 ??F) 12/23/2020 9:07 AM MARINE FUEL DOCK ATTENDANT Respiratory Rate 16 09/02/2019 10:27 AM CDT Oxygen Saturation 98% 12/23/2020 9:07 AM MARINE FUEL DOCK ATTENDANT Inhaled Oxygen Concentration - - Weight 105.7 kg (233 lb) 12/23/2020 9:07 AM MARINE FUEL DOCK ATTENDANT Height 185.4 cm (6' 1) 12/23/2020 9:07 AM MARINE FUEL DOCK ATTENDANT Body Mass Index 30.74 12/23/2020 9:07 AM MARINE FUEL DOCK ATTENDANT Plan of Treatment Health Maintenance Due Date Last Done Comments COVID-19 vaccine series (#1) 03/15/1986 Pneumococcal series for age 19-64 1991 (1 - PCV) Hepatitis C screening for age 1009/14/2003 18-79 Depression screening for age 12+ 03/02/2021 03/02/2020, 06/2020, 03/01/2020, Additional history exists BMI (ht and wt on same day) for 12/23/2021 12/23/2020, 06/25, age 18+ 04/23/2019, Additional history exists Influenza for age 9-49 07/26/2022 02/02/2020, 11/21/2016 Lipids for age 35-44 01/05/2024 01/05/2019 Tetanus booster 03/05/2026 03/05/2016, 05/29/2004, 06/08/2001, Additional history exists Tdap Completed 03/05/2016 Results Not on filefrom Last 3 Months Insurance Payer Benefit Plan / Subscriber ID Effective Phone Address T ype Group Dates [employer] BILL [id number] 2019-Pres [employer] ent CLAIM STRATEGI ES [address] [facility] [phone] [place] [address] Tang Schmidt Personal/Family Self [id number] ([place]) [place] [address] Care Teams Staple Fiber Washer Relationship Specialty Start Date End Date Pcp, No PCP - General 03/03/22 .
--- OUTSIDE RECORDS SUMMARY | 2022-08-27 18:38 | XMS_ITS | Encounter Summary ---
:1985 Author Organization [facility] Address [address] [place] [address] Care Team Providers Name Role Phone Unavailable Primary Care Provider Unavailable Reason for Visit Reason Comments Depression Registry Call 1 Encounter Details Date Type Department Care Team Description 10/14/2019 Nurse Triage Pasquale Ragland De pression Registry Medicine MD Call [address] [address] [address] [address] [place], [place] [phone] (Wo rk) Social History Tobacco Use Types Packs/Day Years Used Date Smoking Tobacco: Some Days Cigarettes 1 10 Smokeless Tobacco: Current Chew Alcohol Use Standard Drinks/Week Comments Yes 24 (1 standard drink = 0.6 oz pure alcoh ol) Sex Assigned at Date Recorded Not on file documented as of this encounter Nursing Notes Joelle Olivo LPN - 11/04/2019 12:01 PM CST Clinician Action: Please review Clinician Next Step: Patient phoned numerous times over past three weeks with no response. FYI to provider. Specific Request(s): Original note from 10/14/19 - triage attempted call back x 3. I have phoned x 3 - No return response PHQ-9 follow up o PHQ-9 score 22 o Previous PHQ-9 date 07/22/19 and score 11 o Follow up plan from previous visit per MD Velez: Anxiety, depression and ADHD. ??So far the sertraline has been very helpful for his anxiety and depression. ??His ADHD remains undiagnosed and??untreated. ??Will refer him to our mental Health Department for ADHD assessment.??I refilled his sertraline at 100 mg daily. o Future appointment date: None o Additional patient information: Attempted to warm transfer to triage d/t positive response to #9 and score of 22, however pt hung up. Triage will attempt to call back. Joelle Abarca LPN - 10/30/2019 12:23 PM CST Left message for patient to call back. [facility] ([facility]), please warm transfer call to triage extension [phone] to discuss. If no answer at extension, re-route to appropriate pool per call routing grid. Joelle Abarca LPN - 10/21/2019 11:06 AM CST Attempted to call, phone went straight to voice mail, voice mail box full, unable to leave message. Joelle Abarca LPN - 10/19/2019 6:24 PM CST Phoned patient, went to voice mail, mailbox full. TIDIGITATOR Ileana Brown, RN - 10/14/2019 10:35 AM CST Attempted to call x3; phone went straight to voice mail, voice mail box full, unable to leave message. Will route to [facility] to continue attempts to reach. [facility]: if pt is reached, please route directly to triage at [phone]. Ileana Marsh RN - 10/14/2019 10:09 AM CST Phone call transferred from Meghan Steele RN, with notification that pt answered yes to number 9 on PHQ-9, score of 22. Pt was on the line but hung up. Will place call out to triage. TIDIGITATOR Meghan Weaver, NEREYDA - 10/14/2019 10:08 AM CST PHQ-9 follow up o PHQ-9 score 22 o Previous PHQ-9 date 07/22/19 and score 11 o Follow up plan from previous visit per MD Velez: Anxiety, depression and ADHD. So far the sertraline has been very helpful for his anxiety and depression. His ADHD remains undiagnosed and untreated. Will refer him to our mental Health Department for ADHD assessment. I refilled his sertraline at 100 mg daily. o Future appointment date: None o Additional patient information: Attempted to warm transfer to triage d/t positive response to #9 and score of 22, however pt hung up. Triage will attempt to call back. TIDIGITATOR documented in this encounter Plan of Treatment Not on filedocumented as of this encounter Visit Diagnoses Not on filedocumented in this encounter
--- OUTSIDE RECORDS SUMMARY | 2022-08-27 18:38 | XMS_ITS | Encounter Summary ---
:1985 Author Organization [facility] Address [address] [place] [id number] Care Team Providers Name Role Phone Unavailable Primary Care Provider Unavailable Encounter Details Date Type Department Care Team Description 01/27/2005 Emergency room Pineda Vega MD EMERGENCY PHYSIC [facility] [address] [place] [phone] (Wo rk) Social History Tobacco Use Types Packs/Day Years Used Date Never Assessed Sex Assigned at Date Recorded Not on file documented as of this encounter Progress Notes Pineda Vega - 01/27/2005 11:59 PM SYSTEM SUPPORT ADMINISTRATOR : 85 CHIEF COMPLAINT: Cough. HISTORY OF PRESENT ILLNESS: The patient is a 19-year-old male who presents to the emergency department complaining of cough productive of white sputum with chest pain and coughing, some mild shortness of breath with coughing, low-grade fever in the 100 range, low back pain and headache, again with coughing. He has had some nausea, denies vomiting. He has had some abdominal cramping, denies diarrhea, bloody or black stools, urinary complaints. He has had multiple sick contacts. His symptoms started approximately two days ago. He also complains of body aches and runny nose. He states he has been taking fluids well, but not eating as much. PAST MEDICAL HISTORY: The patient denies any medical problems. MEDICATIONS: He is on no medications. ALLERGIES: No known drug allergies. SOCIAL HISTORY: Occasional alcohol use. He does smoke cigarettes. FAMILY HISTORY: Noncontributory. REVIEW OF SYSTEMS: As noted in the HPI. All other systems are negative. PHYSICAL EXAM: On physical exam, the patient is alert, appropriate. Temperature 99.7, pulse 109, respiratory rate 16, blood pressure 144/86, oxygen saturation 97% on room air. HEAD: Normal. EYES: Normal. EARS: Normal. NOSE: Normal. THROAT: Normal. NECK: No lymphadenopathy. No bruits or masses. LUNGS are clear to auscultation bilaterally. CARDIAC: Regular rate and rhythm. No murmurs, gallops or rubs. ABDOMEN: Normoactive bowel sounds. Nontender, nondistended. Soft. No masses. EXTREMITIES: Normal. SKIN: Warm and dry. No rash. LABORATORY AND DIAGNOSTIC: An Influenza Rapid antigen was order, which was positive for influenza A. EMERGENCY DEPARTMENT COURSE: The patient stated he was drinking fluids well. I gave him an albuterol neb to see if that improved his coughing, as he stated he had used one in the past. He stated that he felt less shortness of breath after the albuterol neb, even though there was no physical exam evidence of bronchospasm. I felt if it had helped in the past and he felt it was helping now, it would be prudent to give him a prescription for an albuterol inhaler two puffs q.2 hours, p.r.n. I also discussed influenza treatment. We elected to start amantadine 100 mg b.i.d. for five days. He was also given a prescription for Robitussin for codeine 1 to 2 teaspoons p.o. q.4 to 6 hours p.r.n., Phenergan 12.5 to 25 mg p.o. q.6 hours p.r.n., fluids, rest, return if worse, follow up with PMD in 72 hours. DISCHARGE VITALS: Pulse 100, respiratory rate 18, blood pressure 140/87. DIAGNOSIS: Influenza A. [id number] _ PINEDA VEGA MD MT: Document: [id number] [place], [place] Name: MR#: [id number] SCHMIDT -[id number] EMERGENCY ROOM ENCOUNTER Page 2 of 2 LCN: [id number] DSC: 01/27/2005 [place], [place] Name: MR#: [id number] SCHMIDT -02 : Admit Date: Account #: 1985 01/27/2005 [id number] Doctor: PINEDA VEGA MD EMERGENCY ROOM ENCOUNTER Page 1 of 2 EM SUPPORT ADMINISTRATOR documented in this encounter Plan of Treatment Not on filedocumented as of this encounter Visit Diagnoses Not on filedocumented in this encounter
[2022-08-27 18:45] VITALS: BP 149/92; PULSE 90; RESP 20; O2SAT 98
[2022-08-27] MEDS: 0.9 % SODIUM CHLORIDE 1000 ml 1,000 ML IV (18:45)
[2022-08-27] MEDS: KETOROLAC 30 MG/ML inj IVP (18:45)
[2022-08-27] MEDS: ONDANSETRON 2 MG/ML inj 4 MG IVP (18:45)
[2022-08-27 18:54] LABS: Basophils Percent Auto 0.2 % (0.0-3.0); Hematocrit 42.3 % (37.0-53.0); Hemoglobin* 14.5 gm/dL (13.5-17.5); Immature Granulocytes Abs Auto 0.05 K/uL (0.00-0.30); Lymphocytes Percent Auto 3.2 % (20-44); Mean Corpuscular HGB Conc 34 gm/dL (32-36); Mean Corpuscular Hemoglobin 31 pg (26-34); Mean Corpuscular Volume 90 fL (80-100); Neutrophils Percent Auto 91.2 % (42.0-72.0); Platelet Count* 206 K/uL (140-440); RDW Coefficient of Variation % 12.7 % (11.5-15.5); Red Blood Count 4.72 m/uL (4.30-5.90); White Blood Count* 14.03 K/uL (4.50-11.00)
[2022-08-27 18:55] LABS: Slide Review Reflex No
[2022-08-27 19:00] VITALS: BP 138/67; PULSE 106; RESP 18; O2SAT 95
[2022-08-27 19:02] LABS: SARS PCR* Negative SARS-CoV-2 (Negative)
[2022-08-27 19:02] LABS: Chloride* 98 mmol/L (96-114)
[2022-08-27 19:03] LABS: Potassium* 3.8 mmol/L (3.6-5.1); Sodium* 131 mmol/L (135-149)
[2022-08-27 19:05] LABS: Est. Creatinine Clearance* 112.09; Estimated Glomerular Filt Rate 100 ml/min
[2022-08-27 19:06] LABS: Blood Urea Nitrogen* 15 mg/dL (5-24); Calcium* 9.2 mg/dL (8.4-10.6); Carbon Dioxide* 23 mmol/L (20-32); Glucose* 111 mg/dL (60-115)
[2022-08-27 19:30] VITALS: BP 145/83; PULSE 112; RESP 18; O2SAT 97
[2022-08-27 20:00] VITALS: BP 121/79; PULSE 108; RESP 18; O2SAT 98
== END 2022-08-27 20:20 | disposition home or self-care (01) ==
PROVIDERS: Emergency Provider Emergency Medicine Emergency Medical Services
DX: J22 Unspecified acute lower respiratory infection (principal); F17.210 Nicotine dependence, cigarettes, uncomplicated
CPT/HCPCS: 36415; 71045; 80048; 85025; 87631; 96361; 96374; 96375; 99284; 99285; J1885; J2405; J7030